=== PATIENT | male | born 1970 | race Caucasian/White ===

== ENCOUNTER 2017-01-18 19:45 | Inpatient (IN) | payer OTHER ==
--- NOTE | 2017-01-18 20:07 | PDOC ---
Rapid Medical Evaluation Chief Complaint: Chest Pain Time Seen by Provider: 01/18/17 20:04 Medical Evaluation: Allergies Allergy/AdvReac Type Severity Reaction Status Date / Time Penicillins Allergy Rash Verified 12/31/12 11:02 01/18/17 20:04 I have performed a brief in-person evaluation of this patient. The Patient presents with a chief complaint of mid chest pain intermittently x 24 hours Reports pain feeling like extreme heart burn. Denies no dizziness, or shortness of breath Pertinent physical exam findings are: NAD unlabored breathing, lungs clear bilaterally Heart s1s2 regular rate I have ordered the following: ekg, labs The patient will proceed to the ED for further evaluation.
[2017-01-18 20:24] LABS: BASOPHIL 0.7 % (0-2.0); EOSINOPHIL 1.3 % (0-4.5); MCH 30.9 pg (25.7-33.7); MCHC 33.7 g/dl (32.0-35.9); MEAN CELL VOLUME 91.9 fl (80-96); MEAN PLT VOLUME 7.3 fl (7.5-11.1); NEUTROPHILS 65.4 % (42.8-82.8); PLATELET COUNT 392 K/MM3 (134-434); RDW 13.7 % (11.9-15.9)
[2017-01-18 21:05] LABS: ALBUMIN 3.9 g/dl (3.4-5.0); ANION GAP 7 (8-16); BILIRUBIN,TOTAL 0.3 mg/dL (0.2-1.0); CALCIUM 9.2 mg/dL (8.5-10.1); CO2 27 mmol/L (21-32); GLUCOSE,RANDOM 96 mg/dL (74-106); SGOT/AST 23 U/L (15-37); SGPT/ALT 32 U/L (12-78); TOT PROT 7.2 g/dl (6.4-8.2)
[2017-01-18] MEDS ORDERED: FAMOTIDINE 20 MG/50 ML IVPB 20 MG/50 ML MG IVPB ONE (21:09)
[2017-01-18] MEDS ORDERED: PANTOPRAZOLE SODIUM 40 MG VIAL IVPUSH ONE (21:10)
[2017-01-18 21:20] LABS: ALK PHOS 87 U/L (45-117); CPK 416 IU/L (39-308)
[2017-01-18 21:23] LABS: TROPONIN I 1.31 ng/ml (0.00-0.05)
[2017-01-18] MEDS ORDERED: ASPIRIN 81 MG CHEWABLE TABLETS PO ONE (21:25)
[2017-01-18] MEDS ORDERED: ASPIRIN 325 MG TABLET PO ONE (21:29)
[2017-01-18] MEDS ORDERED: ASPIRIN 325 MG TABLET ONE (21:33)
[2017-01-18] MEDS ORDERED: HEPARIN NA (PORCINE) 5,000 UNITS/ML 1ML VIAL IVPUSH PRN ×2 (21:37)
[2017-01-18] MEDS ORDERED: ATORVASTATIN CA 80 MG TABLET (FP) PO ONE (21:40)
[2017-01-18] MEDS ORDERED: HEPARIN - 25,000 UNIT in SODIUM CHLORIDE 495 ML IV SCH (21:45)
[2017-01-18] MEDS ORDERED: HEPARIN NA (PORCINE) 5,000 UNITS/ML 1ML VIAL ONE ×2 (21:45→23:13)
[2017-01-18] MEDS ORDERED: ATORVASTATIN CA 80 MG TABLET (FP) ONE (21:45)
[2017-01-18] MEDS ORDERED: HEPARIN INFUSION - 25,000 UNITS/500 ML INFUS.BAG IVPB ONE (21:45)
--- NOTE | 2017-01-18 21:50 | PDOC ---
History of Present Illness - General Chief Complaint: Chest Pain Stated Complaint: CHEST PAIN Time Seen by Provider: 01/18/17 20:04 - History of Present Illness Initial Comments: 01/18/17 21:46 CHIEF COMPLAINT: chest pain HISTORY OF PRESENT ILLNESS: 46 yo M with hx of GERD presents to ED with chest pain x 24 hours. Patient reports "doing a lot of hammering" the day before the chest pain started, and he states that the pain feels like a "burning pain" and is more midsternal than anywhere else. He denies any pain to his left arm or jaw. He states "the chest pain is gone right now" but the pain has been intermittent and "sharp" and has not gone away "with Tums like when I usually have reflux." He denies shortness of breath or diaphoresis and reports that he has had palpitations on and off "for a while" but he had recent echo "about a year thornton" at his PCP Chester's office and was told it was normal. PAST MEDICAL HISTORY: Denies past medical history FAMILY HISTORY: Denies SOCIAL HISTORY: Smoker, 1 pack daily. Denies alcohol use, 'occasional" marijuana use. SURGICAL HISTORY: Denies ALLERGIES: N REVIEW OF SYSTEMS General/Constitutional: Denies fever or chills. Denies weakness, weight change. HEENT: Denies change in vision. Denies ear pain or discharge. Denies sore throat. Cardiovascular: Intermittent "burning" midsternal chest pain x 24 hours. Respiratory: Denies cough, wheezing, or hemoptysis. Gastrointestinal: Denies nausea, vomiting, diarrhea or constipation. Denies rectal bleeding. Genitourinary: Denies dysuria, frequency, or change in urination. Musculoskeletal: Denies joint or muscle swelling or pain. Denies neck or back pain. Skin and breasts: Denies rash or easy bruising. Neurologic: Denies headache, vertigo, loss of consciousness, or loss of sensation. PHYSICAL EXAM General Appearance: Well-appearing, appropriately dressed. No apparent distress. HEENT: EOMI, PERRLA, normal ENT inspection, normal voice, TMs normal, pharynx normal. No conjunctival pallor. No photophobia, scleral icterus. Neck: Supple. Trachea midline. No tenderness, rigidity, carotid bruit, stridor , lymphadenopathy, or thyromegaly. Respiratory/Chest: Lungs CTAB. No shortness of breath, chest tenderness, respiratory distress, accessory muscle use. No crackles, rales, rhonchi, stridor , wheezing, dullness Cardiovascular: RRR. S1, S2. No JVD, murmur, bradycardia, tachycardia. Vascular Pulses: Dorsalis-Pedis (R): 2+, Dorsalis-Pedis (L): 2+ Gastrointestinal/Abdominal: Normal bowel sounds. Abdomen soft, non-distended. No tenderness or rebound tenderness. No organomegaly, pulsatile mass, guarding , hernia, hepatomegaly, splenomegaly. Lymphatic: No adenopathy, tenderness. Musculoskeletal/Extremities: Normal inspection. FROM of all extremities, normal capillary refill. Pelvis Stable. No CVA tenderness. No tenderness to extremities, pedal edema, swelling, erythema or deformity. Integumentary: Appropriate color, dry, warm. No cyanosis, erythema, jaundice or rash Neurologic: funeral pre arrangement specialist II-XII intact. Fully oriented, alert. Appropriate mood/affect. Motor strength 5/5. No appreciable EOM palsy, facial droop or sensory deficit. 01/18/17 21:51 Past History - Past Medical History Allergies/Adverse Reactions: Allergies Allergy/AdvReac Type Severity Reaction Status Date / Time Penicillins Allergy Rash Verified 12/31/12 11:02 Home Medications: Ambulatory Orders Albuterol Sulfate Inhaler - [Ventolin HFA Inhaler -] 1 - 2 inh PO QID 12/31/12 Asthma: Yes COPD: No DVT: No Dementia: No - Suicide/Smoking/Psychosocial Hx Smoking Status: Yes Smoking History: Current every day smoker Have you smoked in the past 12 months: Yes Number of Cigarettes Smoked Daily: 20 Information on smoking cessation initiated: No Hx Alcohol Use: No Drug/Substance Use Hx: No *Physical Exam - Vital Signs Last Vital Signs Temp Pulse Resp BP Pulse Ox 98.3 F 91 H 24 133/92 100 01/18/17 20:05 01/18/17 20:05 01/18/17 20:05 01/18/17 20:05 01/18/17 20:05 Heart Score/ECG Review - History History: Slightly suspicious - Electrocardiogram EKG: Non specific repolarization disturbance - Age Age: 45-65 - Risk Factors Risk Factors Heart Score: Yes Smoking History Based on the list above the patient has:: 1-2 risk factors - Troponin Troponin: >/=3x normal limit - Score Heart Score - Total: 5 ED Treatment Course - LABORATORY CBC & Chemistry Diagram: 01/18/17 20:15 01/18/17 20:15 - ADDITIONAL ORDERS Additional order review: Laboratory Results 01/18/17 01/18/17 01/18/17 21:50 21:50 20:15 PT with INR 11.10 INR 0.98 Sodium 138 Potassium 4.2 Chloride 104 Carbon Dioxide 27 Anion Gap 7 L BUN 11 D Creatinine 1.0 Creat Clearance w eGFR > 60 Random Glucose 96 Calcium 9.2 Magnesium 1.9 Total Bilirubin 0.3 AST 23 ALT 32 Alkaline Phosphatase 87 Creatine Kinase 416 H Creatine Kinase Index 2.2 CK-MB (CK-2) 9.345 H Troponin I 1.31 H* Total Protein 7.2 Albumin 3.9 01/18/17 20:15 RBC 4.62 MCV 91.9 MCHC 33.7 RDW 13.7 MPV 7.3 L Neutrophils % 65.4 Lymphocytes % 24.3 Monocytes % 8.3 Eosinophils % 1.3 Basophils % 0.7 - RADIOLOGY Radiology Studies Ordered: Category Date Time Status CHEST PA & LAT [RAD] Stat Radiology 01/18/17 21:25 Taken - Medications Given in the ED: ED Medications Discontinued Medications Generic Name Dose Route Start Last Admin Trade Name Daniela PRN Reason Stop Dose Admin Aspirin 162 mg 01/18/17 21:25 01/18/17 21:35 Asa - PO 01/18/17 21:26 Not Given ONCE ONE Aspirin 325 mg 01/18/17 21:29 01/18/17 21:34 Asa - PO 01/18/17 21:30 325 mg ONCE ONE Administration Atorvastatin Calcium 80 mg 01/18/17 21:40 01/18/17 21:55 Lipitor - PO 01/18/17 21:41 80 mg ONCE ONE Administration Famotidine/Sodium Chloride 20 mg in 50 mls @ 100 mls/hr 01/18/17 21:09 21:34 Pepcid 20 Mg Premixed Ivpb - IVPB 01/18/17 21:38 Not Given ONCE ONE Pantoprazole Sodium 40 mg 01/18/17 21:10 01/18/17 21:34 Protonix Iv IVPUSH 01/18/17 21:11 Not Given ONCE ONE Medical Decision Making - Medical Decision Making 01/18/17 21:53 46 yo M with hx of GERD presents to ED with chest pain x 24 hours. -EKG done in triage -CBC, CMP, trop ordered in triage Trop 1.3. ACS order set activated. Will start patient on aspirin 325, heparin drip, Patient's HEART score 5 - will admit for MAUREEN. Patient's PCP is [facility], admitting to hospitalist service [facility]. Discussed case with on-call outside dealer sales representative Dr. Anthony - no Plavix or nitro at this time as it has been 24 hours since onset of chest pain and patient is currently asymptomatic. Will give nitropaste if patient's chest pain returns. *DC/Admit/Observation/Transfer Diagnosis at time of Disposition: ACS (acute coronary syndrome) - Discharge Dispostion Admit: Yes - Referrals Referrals: Anup Briggs MD [Primary Care Provider] - - Patient Instructions - Post Discharge Activity
[2017-01-18 22:42] LABS: INR 0.98 (0.82-1.09); PROTHROMBIN TIME (PATIENT) 11.1 SEC (9.98-11.88)
--- NOTE | 2017-01-18 23:13 | HP ---
CHIEF COMPLAINT: Chest Pain PCP: Dr. Anup Briggs HISTORY OF PRESENT ILLNESS: This is a 46 y/o man with a past medical history of GERD, Asthma, Smoker 1PPD. Who presents to the ED with Chest Pain x2 days while at rest. Patient reports the quality of the pain as burning, non-radiating to the mid-sternum. Patient reports the pain as being intermittent- now resolved. He reports having a similar episode in the past which was relieved with Tums. The patient is a chronic smoker and daily marijuana use. He denies using other recreational drugs. Patient denies fever, chills, SOB, AP, N/V/D, constipation, dysuria. ER course was notable for: (1) Troponin I- 1.31, started on Heparin Drip (2) EKG- NSR with sinus arrhythmia, Septal infarct age undetermined (3) Chest Xray- no significant interval change, or acute lung disease is present Recent Travel: None PAST MEDICAL HISTORY: GERD Asthma Tobacco use PAST SURGICAL HISTORY: None Social History: Smoking: Cigarettes 1PPD Alcohol: Denies Drugs: Marijuana daily Lives with spouse Family History: Non-Contributory Allergies Penicillins Allergy (Verified 12/31/12 11:02) Rash ? RASH HOME MEDICATIONS: Home Medications Medication Instructions Recorded Albuterol Sulfate Inhaler - 1 - 2 inh PO QID 12/31/12 [Ventolin HFA Inhaler -] REVIEW OF SYSTEMS CONSTITUTIONAL: Absent: fever, chills, diaphoresis, generalized weakness, malaise, loss of appetite, weight change HEENT: Absent: rhinorrhea, nasal congestion, throat pain, throat swelling, difficulty swallowing, mouth swelling, ear pain, eye pain, visual changes CARDIOVASCULAR: chest pain Absent: syncope, palpitations, irregular heart rate, lightheadedness, peripheral edema RESPIRATORY: Absent: cough, shortness of breath, dyspnea with exertion, orthopnea, wheezing, stridor, hemoptysis GASTROINTESTINAL: Absent: abdominal pain, abdominal distension, nausea, vomiting, diarrhea, constipation, melena, hematochezia GENITOURINARY: Absent: dysuria, frequency, urgency, hesitancy, hematuria, flank pain, genital pain MUSCULOSKELETAL: Absent: myalgia, arthralgia, joint swelling, back pain, neck pain SKIN: Absent: rash, itching, pallor HEMATOLOGIC/IMMUNOLOGIC: Absent: easy bleeding, easy bruising, lymphadenopathy, frequent infections ENDOCRINE: Absent: unexplained weight gain, unexplained weight loss, heat intolerance, cold intolerance NEUROLOGIC: Absent: headache, focal weakness or paresthesias, dizziness, unsteady gait, seizure, mental status changes, bladder or bowel incontinence PSYCHIATRIC: Absent: anxiety, depression, suicidal or homicidal ideation, hallucinations. PHYSICAL EXAMINATION Vital Signs - 24 hr 01/18/17 20:05 Temperature 98.3 F Pulse Rate 91 H Respiratory 24 Rate Blood Pressure 133/92 O2 Sat by Pulse 100 Oximetry (%) GENERAL: Awake, alert, and fully oriented, in no acute distress. HEAD: Normal with no signs of trauma. EYES: Pupils equal, round and reactive to light, extraocular movements intact, sclera anicteric, conjunctiva clear. No lid lag. EARS, NOSE, THROAT: Ears normal, nares patent, oropharynx clear without exudates. Moist mucous membranes. NECK: Normal range of motion, supple without lymphadenopathy, JVD, or masses. LUNGS: Coarse rhonchi at apex bilaterally, clear to bases. No wheezes. No accessory muscle use. HEART: Regular rate and rhythm, normal S1 and S2 without murmur, rub or gallop. CP is non-reproducible on palpation ABDOMEN: Soft, nontender, not distended, normoactive bowel sounds, no guarding, no rebound, no masses. No hepatomegaly or splenomegaly. MUSCULOSKELETAL: Normal range of motion at all joints. No bony deformities or tenderness. No CVA tenderness. UPPER EXTREMITIES: 2+ pulses, warm, well-perfused. No cyanosis. No clubbing. No peripheral edema. LOWER EXTREMITIES: 2+ pulses, warm, well-perfused. No calf tenderness. No peripheral edema. NEUROLOGICAL: Cranial nerves II-XII intact. Normal speech. Normal gait. PSYCHIATRIC: Cooperative. Good eye contact. Appropriate mood and affect. SKIN: Warm, dry, normal turgor, no rashes or lesions noted, normal capillary refill. Laboratory Results - last 24 hr 01/18/17 01/18/17 01/18/17 20:15 20:15 21:50 WBC 9.0 RBC 4.62 Hgb 14.3 Hct 42.5 MCV 91.9 MCH 30.9 MCHC 33.7 RDW 13.7 Plt Count 392 MPV 7.3 L Neutrophils % 65.4 Lymphocytes % 24.3 Monocytes % 8.3 Eosinophils % 1.3 Basophils % 0.7 PT with INR 11.10 INR 0.98 Sodium 138 Potassium 4.2 Chloride 104 Carbon Dioxide 27 Anion Gap 7 L BUN 11 D Creatinine 1.0 Creat Clearance w eGFR > 60 Random Glucose 96 Calcium 9.2 Magnesium Total Bilirubin 0.3 AST 23 ALT 32 Alkaline Phosphatase 87 Creatine Kinase 416 H Creatine Kinase Index 2.2 CK-MB (CK-2) 9.345 H Troponin I 1.31 H* Total Protein 7.2 Albumin 3.9 01/18/17 21:50 WBC RBC Hgb Hct MCV MCH MCHC RDW Plt Count MPV Neutrophils % Lymphocytes % Monocytes % Eosinophils % Basophils % PT with INR INR Sodium Potassium Chloride Carbon Dioxide Anion Gap BUN Creatinine Creat Clearance w eGFR Random Glucose Calcium Magnesium 1.9 Total Bilirubin AST ALT Alkaline Phosphatase Creatine Kinase Creatine Kinase Index CK-MB (CK-2) Troponin I Total Protein Albumin ASSESSMENT/PLAN: 46 y/o man with a PMHx of: Asthma, GERD, Tobacco Dependence. Admitted Telemetry for Chest Pain, NSTEMI for further evaluation of their emergent condition. Plan: 1. Cardiology: Chest Pain, NSTEMI - Continue cardiac monitoring - HEART Score 5 - KAT Score 2 - Started on Heparin Drip - Asa/Lipitor given in ED, will continue - Appreciate Cardiology Consult - Serial Enzymes - Serial EKGs - Echo check LVSF, wall motion - Will defer stress testing to Cardiology 2. Gastrointestinal: GERD - Will start Pepcid daily 3. Pulmonary: Asthma - Controlled - Albuterol neb prn 4. FEN - Replete lytes prn - NPO 5. DVT Prophylaxis - SCDs - On Heparin Drip- NSTEMI Code Status- Full Code Dispo: Requires Inpatient Care Problem List - Problem (1) Chest pain Code(s): R07.9 - CHEST PAIN, UNSPECIFIED (2) ACS (acute coronary syndrome) Code(s): I24.9 - ACUTE ISCHEMIC HEART DISEASE, UNSPECIFIED (3) Asthma Code(s): J45.909 - UNSPECIFIED ASTHMA, UNCOMPLICATED (4) GERD (gastroesophageal reflux disease) Code(s): K21.9 - GASTRO-ESOPHAGEAL REFLUX DISEASE WITHOUT ESOPHAGITIS (5) Tobacco dependence due to cigarettes Code(s): F17.210 - NICOTINE DEPENDENCE, CIGARETTES, UNCOMPLICATED (6) Marijuana dependence Code(s): F12.20 - CANNABIS DEPENDENCE, UNCOMPLICATED (7) DVT prophylaxis Code(s): [id number] - Visit type - Emergency Visit Emergency Visit: Yes ED Registration Date: 01/18/17 Care time: The patient presented to the Emergency Department on the above date and was hospitalized for further evaluation of their emergent condition. - New Patient This patient is new to me today: Yes Date on this admission: 01/18/17 - Critical Care Critical Care patient: No
[2017-01-18] MEDS: ASPIRIN 81 MG CHEWABLE TABLETS PO SCH (23:22)
[2017-01-19 02:54] LABS: TROPONIN I 2.55 ng/ml (0.00-0.05)
[2017-01-19 03:06] LABS: URINE APPEARANCE CLEAR; URINE BILIRUBIN NEGATIVE (NEGATIVE); URINE BLOOD NEGATIVE (NEGATIVE); URINE COLOR STRAW; URINE GLUCOSE (UA) NEGATIVE (NEGATIVE); URINE KETONE NEGATIVE (NEGATIVE); URINE NITRITE NEGATIVE (NEGATIVE); URINE PROTEIN NEGATIVE (NEGATIVE); URINE UROBILINOGEN NEGATIVE mg/dL (0.2-1.0)
[2017-01-19 03:18] LABS: URINE MARIJUANA THC POSITIVE ng/ml (CUTOFF=50)
--- NOTE | 2017-01-19 10:06 | PN ---
Progress Note, Physician Chief Complaint: Events noted Pt currently does not have chest pain no SOB cough+ last two days has been having chest pain no dizziness or light headedness spoke with Dr Anthony= Cardiology at bedside - Current Medication List Current Medications: Active Medications Aspirin (Asa -) 81 mg PO DAILY JOHN Last Admin: 01/18/17 23:22 Dose: Not Given Atorvastatin Calcium (Lipitor -) 80 mg PO HS JOHN Heparin Sodium (Porcine) (Heparin -) 1,000 unit IVPUSH PRN PRN PRN Reason: Heparin Heparin Sodium (Porcine) (Heparin -) 5,000 unit IVPUSH PRN PRN PRN Reason: Heparin Last Admin: 01/18/17 23:33 Dose: 5,000 unit Heparin Sodium (Porcine) 25, (000 unit/ Sodium Chloride) 500 mls @ 20 mls/hr IV TITR JOHN; 1,000 UNIT/HR PRN Reason: Protocol Last Admin: 01/18/17 22:03 Dose: 1,000 unit/hr, 20 mls/hr - Objective Vital Signs: Vital Signs Temperature 98.3 F 01/19/17 07:25 Pulse Rate 82 01/19/17 07:25 Respiratory Rate 18 01/19/17 07:25 Blood Pressure 111/86 01/19/17 07:25 O2 Sat by Pulse Oximetry (%) 100 01/19/17 07:25 Constitutional: Yes: No Distress, Anxious Cardiovascular: Yes: Regular Rate and Rhythm Respiratory: Yes: Diminished, Rhonchi Gastrointestinal: Yes: Normal Bowel Sounds, Soft. No: Palpable Mass, Tenderness Edema: No Labs: CBC, BMP 01/18/17 20:15 01/18/17 20:15 INR, PTT INR 0.98 (0.82-1.09) 01/18/17 21:50 Problem List - Problems (1) ACS (acute coronary syndrome) Code(s): I24.9 - ACUTE ISCHEMIC HEART DISEASE, UNSPECIFIED (2) COPD (chronic obstructive pulmonary disease) Code(s): J44.9 - CHRONIC OBSTRUCTIVE PULMONARY DISEASE, UNSPECIFIED (3) Chest pain Code(s): R07.9 - CHEST PAIN, UNSPECIFIED Qualifiers: Chest pain type: chest pain due to myocardial ischemia Ischemic chest pain type: unstable angina pectoris Qualified Code(s): I20.0 - Unstable angina (4) Tobacco dependence due to cigarettes Code(s): F17.210 - NICOTINE DEPENDENCE, CIGARETTES, UNCOMPLICATED Assessment/Plan PLAN On Heparin drip received ASA, Plavix and Lipitor Smoking cessation advised-- i asked if he wanted a Nicotine patch and pt declines for now but understands the need to quit spoke with [facility] Pt will be transferred to [facility] for cardiac cath Nebs as needed Keep NPO IV fluids Time spent - 30 min speaking with health and safety consultant, ER staff, family , documentation and examination '
[2017-01-19] MEDS ORDERED: ASPIRIN 81 MG CHEWABLE TABLETS ONE (10:10)
[2017-01-19] MEDS: ASPIRIN 81 MG CHEWABLE TABLETS PO SCH (10:12)
--- NOTE | 2017-01-19 10:14 | CON.CARD ---
Consult Consult Specialty:: Cardiology Referred by:: Kirstin Rodriguez MD Reason for Consultation:: Cardiac evaluation - History of Present Illness Chief Complaint: Chest pain History of Present Illness: Patient is a 46 year old male with underlying history of bronchial asthma who presents with intermittent mid sternal chest pain described as burning sensation radiating to left shoulder. He denies shortness of breath or palpitations. He denies paroxysmal nocturnal dyspnea or orthopnea. He denies fever or chills. He has intermittent cough, but no expectorations. He denies headache or lightheadedness. Troponin was elevated at 2.55. He was started on Heparin drip and ASA and Lipitor has been given. Cardiology consultation was called for further evaluation. - History Source History Provided By: Patient, Medical Record Limitations to Obtaining History: No Limitations - Past Medical History Pulmonary: Yes: Asthma - Past Surgical History Past Surgical History: Yes: None - Alcohol/Substance Use Hx Alcohol Use: No - Smoking History Smoking history: Current every day smoker Have you smoked in the past 12 months: Yes Aproximately how many cigarettes per day: 20 Home Medications - Allergies Allergies/Adverse Reactions: Allergies Allergy/AdvReac Type Severity Reaction Status Date / Time Penicillins Allergy Rash Verified 12/31/12 11:02 - Home Medications Home Medications: Ambulatory Orders Albuterol Sulfate Inhaler - [Ventolin HFA Inhaler -] 1 - 2 inh PO QID 12/31/12 Family Disease History - Family Disease History Family History: Denies Review of Systems - Review of Systems Constitutional: denies: Chills, Fever Cardiovascular: reports: Chest Pain. denies: Palpitations, Shortness of Breath Respiratory: reports: Cough. denies: Hemoptysis, Orthopnea, PND, SOB, SOB on Exertion Gastrointestinal: denies: Abdominal Pain, Constipation, Diarrhea, Melena, Nausea , Rectal Bleeding, Vomiting Musculoskeletal: denies: Back Pain, Joint Pain Neurological: denies: Dizziness, Headache, Seizure, Syncope Vital Signs: Vital Signs Temperature 98.3 F 01/19/17 07:25 Pulse Rate 82 01/19/17 07:25 Respiratory Rate 18 01/19/17 07:25 Blood Pressure 111/86 01/19/17 07:25 O2 Sat by Pulse Oximetry (%) 100 01/19/17 07:25 Neck: Yes: Supple Respiratory: Yes: Regular, CTA Bilaterally Gastrointestinal: Yes: Normal Bowel Sounds, Soft. No: Tenderness Cardiovascular: Yes: Regular Rate and Rhythm JVD: No Carotid Bruit: No PMI: Non-Displaced Heart Sounds: Yes: S1, S2. No: Gallop Murmur: No: Systolic Murmur, Diastolic Murmur Edema: No Peripheral Pulses WNL: Yes - Other Data Labs, Other Data: CBC, BMP 01/18/17 20:15 01/18/17 20:15 INR, PTT INR 0.98 (0.82-1.09) 01/18/17 21:50 Troponin, BNP 01/18/17 01/19/17 20:15 01:48 Troponin I 1.31 H* 2.55 H* D Laboratory Results - last 24 hr 01/18/17 01/18/17 01/18/17 20:15 20:15 21:50 WBC 9.0 RBC 4.62 Hgb 14.3 Hct 42.5 MCV 91.9 MCH 30.9 MCHC 33.7 RDW 13.7 Plt Count 392 MPV 7.3 L Neutrophils % 65.4 Lymphocytes % 24.3 Monocytes % 8.3 Eosinophils % 1.3 Basophils % 0.7 PT with INR 11.10 INR 0.98 Sodium 138 Potassium 4.2 Chloride 104 Carbon Dioxide 27 Anion Gap 7 L BUN 11 D Creatinine 1.0 Creat Clearance w eGFR > 60 Random Glucose 96 Calcium 9.2 Magnesium Total Bilirubin 0.3 AST 23 ALT 32 Alkaline Phosphatase 87 Creatine Kinase 416 H Creatine Kinase Index 2.2 CK-MB (CK-2) 9.345 H Troponin I 1.31 H* Total Protein 7.2 Albumin 3.9 Urine Color Urine Appearance Urine pH Ur Specific [place] Urine Protein Urine Glucose (UA) Urine Ketones Urine Blood Urine Nitrite Urine Bilirubin Urine Urobilinogen Opiates Screen Methadone Screen Barbiturate Screen Phencyclidine Screen Ur Amphetamines Screen MDMA (Ecstasy) Screen Benzodiazepines Screen Cocaine Screen U Marijuana (THC) Screen 01/18/17 01/19/17 01/19/17 21:50 01:48 02:54 WBC RBC Hgb Hct MCV MCH MCHC RDW Plt Count MPV Neutrophils % Lymphocytes % Monocytes % Eosinophils % Basophils % PT with INR INR Sodium Potassium Chloride Carbon Dioxide Anion Gap BUN Creatinine Creat Clearance w eGFR Random Glucose Calcium Magnesium 1.9 Total Bilirubin AST ALT Alkaline Phosphatase Creatine Kinase 375 H Creatine Kinase Index 2.7 CK-MB (CK-2) 10.291 H Troponin I 2.55 H* D Total Protein Albumin Urine Color Urine Appearance Urine pH Ur Specific [place] Urine Protein Urine Glucose (UA) Urine Ketones Urine Blood Urine Nitrite Urine Bilirubin Urine Urobilinogen Opiates Screen Negative Methadone Screen Negative Barbiturate Screen Negative Phencyclidine Screen Negative Ur Amphetamines Screen Negative MDMA (Ecstasy) Screen Negative Benzodiazepines Screen Negative Cocaine Screen Negative U Marijuana (THC) Screen Positive 01/19/17 02:55 WBC RBC Hgb Hct MCV MCH MCHC RDW Plt Count MPV Neutrophils % Lymphocytes % Monocytes % Eosinophils % Basophils % PT with INR INR Sodium Potassium Chloride Carbon Dioxide Anion Gap BUN Creatinine Creat Clearance w eGFR Random Glucose Calcium Magnesium Total Bilirubin AST ALT Alkaline Phosphatase Creatine Kinase Creatine Kinase Index CK-MB (CK-2) Troponin I Total Protein Albumin Urine Color Straw Urine Appearance Clear Urine pH 7.0 Ur Specific [place] 1.003 Urine Protein Negative Urine Glucose (UA) Negative Urine Ketones Negative Urine Blood Negative Urine Nitrite Negative Urine Bilirubin Negative Urine Urobilinogen Negative Opiates Screen Methadone Screen Barbiturate Screen Phencyclidine Screen Ur Amphetamines Screen MDMA (Ecstasy) Screen Benzodiazepines Screen Cocaine Screen U Marijuana (THC) Screen Sinus rhythm no ST-T abnormality Problem List - Problems (1) ACS (acute coronary syndrome) Code(s): I24.9 - ACUTE ISCHEMIC HEART DISEASE, UNSPECIFIED (2) Asthma Code(s): J45.909 - UNSPECIFIED ASTHMA, UNCOMPLICATED Qualifiers: Asthma severity: mild (3) Chest pain Code(s): R07.9 - CHEST PAIN, UNSPECIFIED Qualifiers: Chest pain type: chest pain due to myocardial ischemia Ischemic chest pain type: unstable angina pectoris Qualified Code(s): I20.0 - Unstable angina (4) Marijuana dependence Code(s): F12.20 - CANNABIS DEPENDENCE, UNCOMPLICATED (5) Tobacco dependence due to cigarettes Code(s): F17.210 - NICOTINE DEPENDENCE, CIGARETTES, UNCOMPLICATED Assessment/Plan 1. Chest pain - ACS/NSTEMI 2. History of bronchial asthma 3. History of smoking cigarettes and marijuana PLAN: 1. Continue Heparin drip 2. NTP as needed if patient has chest pain 3. ASA +/- Plavix 4. Lipitor 5. Low dose beta tere 6. Transthoracic echocardiography to assess LV/RV and valvular function (if not done here, it may be done at [facility] cardiac cath tech or as outpatient) 7. Discussed indication for left heart cardiac catheterization. Patient agrees to proceed. 8. Smoking cessation is to be counseled Further plans are to follow Judson Anthony MD
--- NOTE | 2017-01-19 10:53 | DS ---
Physical Examination Vital Signs: Vital Signs Temperature 98.1 F 01/19/17 10:13 Pulse Rate 84 01/19/17 10:13 Respiratory Rate 18 01/19/17 10:13 Blood Pressure 115/82 01/19/17 10:13 O2 Sat by Pulse Oximetry (%) 100 01/19/17 10:13 Labs: CBC, BMP 01/18/17 20:15 01/18/17 20:15 Discharge Summary Reason For Visit: ACUTE CORONARY SYNDROME Current Active Problems ACS (acute coronary syndrome) (Acute) Asthma (Acute) COPD (chronic obstructive pulmonary disease) (Acute) Chest pain (Acute) DVT prophylaxis (Acute) GERD (gastroesophageal reflux disease) (Acute) Marijuana dependence (Acute) Tobacco dependence due to cigarettes (Acute) Hospital Course: transferred to [facility] for cardiac cath -- see progrees note of same date - Instructions Referrals: Anup Briggs MD [Primary Care Provider] - - Home Medications Comprehensive Discharge Medication List: Ambulatory Orders Albuterol Sulfate Inhaler - [Ventolin HFA Inhaler -] 1 - 2 inh PO QID 12/31/12
[2017-01-19] MEDS ORDERED: CLOPIDOGREL BISULFATE 300 MG TABLET PO ONE (11:02)
[2017-01-19] MEDS ORDERED: METOPROLOL SUCCINATE 25 MG TAB.SR.24H (FP) PO SCH (11:15)
[2017-01-19] MEDS ORDERED: CLOPIDOGREL BISULFATE 300 MG TABLET ONE (11:30)
[2017-01-19 11:32] LABS: URINE LEUK ESTERASE Negative (NEGATIVE)
[2017-01-19 11:33] VITALS: BMI 24.2
[2017-01-19 12:18] VITALS: BP 130/85; PULSE 75; TEMP 98
--- NOTE | 2017-01-19 12:21 | EKG ---
Test Reason : Blood Pressure : / mmHG Vent. Rate : 083 BPM Atrial Rate : 083 BPM P-R Int : 136 ms QRS Dur : 084 ms QT Int : 346 ms P-R-T Axes : 052 060 054 degrees QTc Int : 406 ms NORMAL SINUS RHYTHM WITH SINUS ARRHYTHMIA POSSIBLE LEFT ATRIAL ENLARGEMENT SEPTAL INFARCT (CITED ON OR BEFORE 18-JAN-2017) UPWARD COVING OF ST SEGMENTS IN LEADS I ANDaVL MAY BE RELATED TO EARLY REPOLARIZATION, CURRENT OF INJURY CANNOT BE EXCLUDED ABNORMAL ECG WHEN COMPARED WITH ECG OF 18-JAN-2017 20:56, NO SIGNIFICANT CHANGE WAS FOUND REPEAT EKG IF CLINICALLY INDICATED Confirmed by LILIANA ERICKSON MD ([id number] on 01/19/2017 12:21:22 PM Referred By: Confirmed By:LILIANA ERICKSON MD
--- NOTE | 2017-01-19 13:28 | EKG ---
Test Reason : Blood Pressure : / mmHG Vent. Rate : 094 BPM Atrial Rate : 094 BPM P-R Int : 146 ms QRS Dur : 080 ms QT Int : 322 ms P-R-T Axes : 066 052 053 degrees QTc Int : 402 ms POOR DATA QUALITY, INTERPRETATION MAY BE ADVERSELY AFFECTED NORMAL SINUS RHYTHM WITH SINUS ARRHYTHMIA POSSIBLE LEFT ATRIAL ENLARGEMENT QS IN V2, CANNOTEXCLUDE SEPTAL INFARCT OF INDERMINATE AGE UPWARD COVING OF ST SEGMENTS IN V5 AND V6 ABNORMAL ECG NO PREVIOUS ECGS AVAILABLE CONSIDER F/U EKG Confirmed by LILIANA ERICKSON MD ([id number] on 01/19/2017 1:27:35 PM Referred By: Confirmed By:LILIANA ERICKSON MD
[2017-01-19] MEDS ORDERED: ATORVASTATIN CA 80 MG TABLET (FP) PO SCH (22:00)
== END 2017-01-19 12:45 | disposition short-term general hospital (02) | DRG 282 ==
LOC: JER 19:45 → JERBED 23:11
PROVIDERS: ADMIT Internal Medicine; ATTEND Internal Medicine
DX: I24.9 Acute ischemic heart disease, unspecified (principal); I21.4 Non-ST elevation (NSTEMI) myocardial infarction; R07.89 Other chest pain; K21.9 Gastro-esophageal reflux disease without esophagitis; J44.9 Chronic obstructive pulmonary disease, unspecified; F17.210 Nicotine dependence, cigarettes, uncomplicated; F12.20 Cannabis dependence, uncomplicated; Z88.0 Allergy status to penicillin
CPT/HCPCS: 36415; 71020-TC; 80053; 80307; 81003; 82550; 82553; 83735; 84484; 85025; 85610; 85730; 93005; 93010; 93306-TC; 99285-25; J1644